=== PATIENT | male | born 1960 | race Caucasian/White ===

== ENCOUNTER 2018-06-27 19:04 | Emergency (ER) | payer OTHER ==
[2018-06-27] MEDS ORDERED: MORPHINE 4 MG/ML 1ML VIAL/SYRINGE (J2270) As Ordered ONE (19:22)
[2018-06-27] MEDS ORDERED: MORPHINE 4 MG/ML 1ML VIAL/SYRINGE (J2270) IV ONE (19:30)
[2018-06-27] MEDS ORDERED: BUPIVACAINE LIPOSOME/PF 1.3% 20ML VIAL (13.3MG/ML)(EXPAREL)(C9290 PER1MG) INFIL ONE (19:30)
[2018-06-27] MEDS ORDERED: NS 1,000 ML IV ONE (19:30)
--- NOTE | 2018-06-27 19:52 | REP ---
Clinical: Trauma. Technique: Frontal view of the chest with multiple views of the right hemithorax. Findings: Frontal view of the chest demonstrates no acute cardiopulmonary process. Multiple views of the right hemithorax demonstrates no obvious acute rib fracture or pathology. Impression: Normal right rib series Electronically Signed by Kuldeep Iraheta MD 06/27/2018 07:43 P
[2018-06-27 20:11] LABS: BASO % 0.4 % (0.0-1.0); EOS # 0.1 10^3/uL (0.0-0.50); EOS % 0.8 % (0.0-3.0); HEMATOCRIT 41.1 % (42.0-52.0); HEMOGLOBIN 13.8 g/dl (13.5-17.5); LYMPH % 9.4 % (24.0-44.0); MEAN CORPUSCULAR HEMOGLOBIN 28.9 pg (27.0-33.0); MEAN CORPUSCULAR HGB CONC 33.6 g/dl (32.0-36.5); MEAN CORPUSCULAR VOLUME 86.2 fl (80.0-96.0); MONO # 0.5 10^3/uL (0.0-0.8); MONO % 4.8 % (0.0-5.0); NEUTROPHILS # 9.3 10^3/uL (1.8-7.7); NEUTROPHILS % 84.1 % (36.0-66.0); PLATELET COUNT, AUTOMATED 210 10^3/uL (150-450); RED BLOOD COUNT 4.77 10^6/uL (4.30-6.10); WHITE BLOOD COUNT 11.1 10^3/uL (4.0-10.0)
[2018-06-27 20:25] LABS: INR 0.89; PROTHROMBIN TIME 12.1 SECONDS (12.1-14.4)
[2018-06-27 20:34] LABS: ALBUMIN 3.3 GM/DL (3.2-5.2); ALT/SGPT 26 U/L (12-78); BILIRUBIN,DIRECT 0.2 MG/DL (0.0-0.2); BILIRUBIN,TOTAL 0.6 MG/DL (0.2-1.0); BLOOD UREA NITROGEN 15 MG/DL (7-18); CALCIUM LEVEL 7.9 MG/DL (8.5-10.1); CARBON DIOXIDE LEVEL 22 MEQ/L (21-32); CHLORIDE LEVEL 111 MEQ/L (98-107); CREATININE FOR GFR 0.82 MG/DL (0.70-1.30); GLOMERULAR FILTRATION RATE > 60.0 (>56); GLUCOSE, FASTING 146 MG/DL (70-100); POTASSIUM SERUM 3.6 MEQ/L (3.5-5.1); SODIUM LEVEL 142 MEQ/L (136-145); TOTAL PROTEIN 6.2 GM/DL (6.4-8.2)
[2018-06-27] MEDS ORDERED: ISOVUE-370 76% 100ML VIAL (Q9967) As Ordered ONE (20:46)
[2018-06-27 21:19] VITALS: BP 136/86
--- NOTE | 2018-06-27 21:22 | REP ---
Clinical: Trauma with right-sided pain. Technique: Axial contrast enhanced images from the lung bases to the pubic symphysis with coronal and sagittal re-formations using 100 ml Isovue 370 intravenous contrast material. Findings: Lung bases demonstrate mild bibasilar atelectasis along with nondisplaced fractures of the right eleventh and twelfth ribs. No evidence for solid organ injury. Liver, spleen, pancreas, gallbladder, bilateral adrenal glands and kidneys are normal. The enteric system is without obstruction or acute inflammatory process. Normal terminal ileum and appendix are identified in the right lower quadrant. Sigmoid diverticulosis noted without acute diverticulitis. Pelvis demonstrates normal bladder and age appropriate prostate/seminal vesicles. No ascites. No free air. No adenopathy. Abdominal aorta and vasculature appears normal and intact. 2 cm fat containing periumbilical hernia identified. Osseous structures intact. Impression: 1. Lung bases demonstrate bibasilar atelectasis and subtle nondisplaced posterior right eleventh and twelfth rib fractures. 2. No acute abdominopelvic pathology or trauma/injury. 3. Sigmoid diverticulosis without acute diverticulitis. 4. 2 cm fat containing periumbilical hernia. Electronically Signed by Kuldepe Iraheta MD 06/27/2018 09:13 P
--- NOTE | 2018-06-27 21:23 | REP ---
Clinical: Trauma. Right-sided chest pain. Technique: Axial contrast enhanced images from the thoracic inlet to the upper abdomen with coronal and sagittal re-formations using 100 ml Isovue 370 intravenous contrast material. Findings: There is a very subtle nondisplaced fracture of the right 11th rib posteriorly and possible nondisplaced fracture of the right 12th rib as well. Mild bibasilar atelectasis. No effusion. No pneumothorax. Tracheobronchial tree is patent. No axillary, hilar, or mediastinal adenopathy. Mediastinum demonstrates normal thoracic aorta and pulmonary vasculature. Heart and pericardium are relatively normal. Mild atherosclerotic changes to the coronary arteries noted. No pericardial effusion. Impression: 1. Very subtle nondisplaced posterior right 11th rib fracture and possible right 12th rib fracture as well. 2. Mild bibasilar atelectasis. Electronically Signed by Kuldeep Iraheta MD 06/27/2018 09:14 P
[2018-06-27] MEDS ORDERED: NORCO 5/325MG TABLET (BULK FOR ED) PO ONE (22:00)
== END 2018-06-27 22:28 | disposition home or self-care (01) ==
LOC: EDBD 19:04 → M ED 19:04
DX: S22.31XA Fracture of one rib, right side, initial encounter for closed fracture (principal); W55.29XA Other contact with cow, initial encounter; Y92.79 Other farm location as the place of occurrence of the external cause
CPT/HCPCS: 71101; 71260; 74177; 80048; 80076; 85025; 85610; 85730; 96374; 99284; C9290; J2270; Q9967

== ENCOUNTER 2020-05-08 17:10 | Observation (INO) | payer OTHER ==
[~2020-05-08] VITALS: Ht 182.9 cm; Wt 100.2 kg
[2020-05-08] MEDS ORDERED: NS 1,000 ML IV ONE (18:00)
[2020-05-08 18:07] LABS: BASO % 0.2 % (0.0-1.0); EOS % 0.2 % (0.0-3.0); HEMATOCRIT 42.4 % (42.0-52.0); LYMPH # 0.7 10^3/uL (1.5-5.0); LYMPH % 16.8 % (24.0-44.0); MEAN CORPUSCULAR HEMOGLOBIN 27.9 pg (27.0-33.0); MEAN CORPUSCULAR VOLUME 84.5 fl (80.0-96.0); MONO # 0.2 10^3/uL (0.0-0.8); MONO % 5.1 % (0.0-5.0); NEUTROPHILS # 3.2 10^3/uL (1.5-8.5); NEUTROPHILS % 77.5 % (36.0-66.0); PLATELET COUNT, AUTOMATED 154 10^3/uL (150-450); RED BLOOD COUNT 5.02 10^6/uL (4.30-6.10); WHITE BLOOD COUNT 4.1 10^3/uL (4.0-10.0)
[2020-05-08] MEDS ORDERED: LOSA100T50 PO (18:13)
[2020-05-08] MEDS ORDERED: MAPA500T2 PO (18:13)
--- NOTE | 2020-05-08 18:19 | REP ---
INDICATION: DYSPNEA/COUGH. COMPARISON: PA chest and CT 06/27/2018, TECHNIQUE: AP portable seated chest FINDINGS: Upright view shows the lungs well inflated and clear without infiltrate, effusion, atelectasis or mass. No definite nodules.. Heart, mediastinal and hilar contours are normal and unchanged. The aorta is minimally tortuous but normal for age and stable. The airway is intact. The bony thorax shows no acute finding. No free air under the diaphragm. IMPRESSION: 1. No acute cardiopulmonary change. Stable examination. <Electronically signed by Paul Angel > 05/08/20 [id number]
[2020-05-08 18:20] LABS: INR 0.87
[2020-05-08 18:43] LABS: ALBUMIN 3.6 GM/DL (3.2-5.2); ALT/SGPT 52 U/L (12-78); BILIRUBIN,DIRECT 0.3 MG/DL (0.0-0.2); BILIRUBIN,TOTAL 0.9 MG/DL (0.2-1.0); BLOOD UREA NITROGEN 16 MG/DL (7-18); CALCIUM LEVEL 8.8 MG/DL (8.5-10.1); CARBON DIOXIDE LEVEL 24 MEQ/L (21-32); CHLORIDE LEVEL 104 MEQ/L (98-107); CK-MB VALUE MASS < 1.0 NG/ML (<3.6); CPK CREATINE PHOSPHOKINASE 60 U/L (39-308); CREATININE FOR GFR 1.25 MG/DL (0.70-1.30); GLOMERULAR FILTRATION RATE > 60.0 (>56); GLUCOSE, FASTING 104 MG/DL (70-100); MB/CK RELATIVE INDEX 1.67 (< OR =4); NT-PRO BNP 57 PG/ML (<125); POTASSIUM SERUM 3.8 MEQ/L (3.5-5.1); SODIUM LEVEL 137 MEQ/L (136-145); THYROID STIMULATING HORMONE 0.429 uIU/ML (0.358-3.740); THYROXINE (T4) 11.2 UG/DL (4.5-12.0); TOTAL PROTEIN 7.8 GM/DL (6.4-8.2); TROPONIN I < 0.02 NG/ML (< 0.10)
[2020-05-08 18:44] LABS: PARTIAL THROMBOPLASTIN TIME 26.8 SECONDS (24.2-38.5)
[2020-05-08 18:47] LABS: D-DIMER QUANT 2216.53 ng/ml (<500)
[2020-05-08 18:59] LABS: FERRITIN 618 NG/ML (26-388); LDH LACTATE DEHYDROGENASE 225 U/L (87-241)
[2020-05-08 20:00] VITALS: O2SAT 98
[2020-05-08 20:54] VITALS: BP 127/70
[2020-05-08] MEDS ORDERED: ACETAMINOPHEN 500 MG TAB PO PRN (21:45)
--- NOTE | 2020-05-08 21:52 | HPEPDOC ---
[facility] Medical History & Physical Date of Admission May 08, 2020 Date of Service: May 08, 2020 History and Physical CHIEF COMPLAINT: Feeling tired HISTORY OF PRESENT ILLNESS: 60-year-old male past medical history of hypertension presents to the emergency department for feeling more tired and weak over the past 2 days. Found to be COVID positive. tells me his was diagnosed with Covid one week ago, in 4 days ago he started feeling feverish at home as well as feeling more tired and weak and feeling some nausea and vomiting. Says his breathing hasn't been too bad but today he started feeling some mild shortness of breath but it is currently resolved. States he has a occasional dry cough. Denies feeling short of breath at this time. Patient had a brief period of time in the ED when he was tachypneic respiratory rate was 28 but this spontaneously resolved and he has not needed supplemental oxygen and saturating between 95 and 100% on room air. Covid labs were ordered in the ED d-dimer, CRP and ferritin were elevated. Pro-calcitonin is pending. PAST MEDICAL HISTORY: Hypertension PAST SURGICAL HISTORY: Right eye cataract surgery 2014, left eye cataract surgery 2005 SOCIAL HISTORY: Denies alcohol use Denies tobacco use Denies illicit drug use FAMILY HISTORY: Reviewed and noncontributory has Covid diagnosed 1 week ago ALLERGIES: Please see below. REVIEW OF SYSTEMS: Constitutional: No sweating or weight loss. Feeling feverish at home Eyes: No eye pain or acute blurred vision HENT: No complaints of headache or sore throat Cadiovascular: No Chest pain or palpitations Pulm: Per HPI. Gastrointestinal: Endorses some nausea and vomited but no abdominal pain Genitourinary: No dysuria or hematuria Musculoskeletal: No back pain or joint pain Skin: No rash or jaundice Neurological: Feeling more tired lately week HOME MEDICATIONS: Please see below. PHYSICAL EXAMINATION: Constitutional: Awake and alert, in no apparent distress. On room air saturating at 98% ENT: Sclera are clear. Mucosa is moist. Respiratory: Lungs CTA bilaterally. No respiratory distress. No use of accessory muscles. Cardiovascular: RRR S1 and S2 are normal, no murmur Gastrointestinal: Abdomen is soft, non distended, non tender, BS present. Musculoskeletal: No edema Neurologic: No focal neurological deficit. Mental Status: A&O x3, normal affect Skin: Warm, dry LABORATORY DATA: See below. IMAGING: Chest x-ray reviewed no acute cardiopulmonary change MICROBIOLOGY: Please see below. ASSESSMENT/PLAN 60-year-old male history of hypertension found to have Covid 19 infection with tachypnea in the ED now resolved. Saturating well on room air. Also having some nausea and vomiting. We'll admit to medical unit for observation. # COVID 19 infection: Continuous pulse ox and oxygen as needed. Not requiring supplemental oxygen as time holding off on steroids at this time. No IV fluids at this time keep on the drier tender naphthalene side. Not suspecting superimposed pneumonia antibiotics for now. Pro-calcitonin pending. Intial D dimer, ferritin, CRP elevated. Trend covid markers. Prophylactic Lovenox Covid dose. Tylenol when necessary for fever. # Nausea/vomiting: QTC okay Zofran when necessary. Regular diet as tolerated. # HTN: Resume home losartan, added amlodipine and hydrochlorothiazide. Monitor and titrate. # DVT prophylaxis: Lovenox COVID prophylactic dose A [facility] Hospitalist Vital Signs Vital Signs Date Time Temp Pulse Resp B/P (MAP) Pulse Ox O2 Delivery O2 Flow Rate FiO2 05/08/20 20:51 101.0 05/08/20 20:30 95 178/97 (124) 97 Room Air 05/08/20 19:30 20 Laboratory Data Labs 24H Laboratory Tests 2 05/08/20 17:53: Immature Granulocyte % (Auto) 0.2, Neutrophils (%) (Auto) 77.5H, Lymphocytes (%) (Auto) 16.8L, Monocytes (%) (Auto) 5.1H, Eosinophils (%) (Auto) 0.2, Basophils (%) (Auto) 0.2, Neutrophils # (Auto) 3.2, Lymphocytes # (Auto) 0.7L, Monocytes # (Auto) 0.2, Eosinophils # (Auto) 0.0, Basophils # (Auto) 0.0, Nucleated Red Blood Cells % (auto) 0.0, Prothrombin Time 12.0, Prothromb Time International Ratio 0.87, Activated Partial Thromboplast Time 26.8, D-Dimer, Quantitative 2216.53H, Anion Gap 9, Glomerular Filtration Rate > 60.0, Lactic Acid Level 1.4, Calcium Level 8.8, Ferritin 618H, Total Bilirubin 0.9, Direct Bilirubin 0.3H, Aspartate Amino Transf (AST/SGOT) 37, Alanine Aminotransferase (ALT/SGPT) 52, Alkaline Phosphatase 97, Lactate Dehydrogenase 225, Total Creatine Kinase 60, Creatine Kinase MB < 1.0, Creatine Kinase MB Relative Index 1.67, Troponin I < 0.02, C-Reactive Protein, Quantitative 3.60H, XO-Inc-J-Type Natriuretic Peptide 57, Total Protein 7.8, Albumin 3.6, Albumin/Globulin Ratio 0.9, Thyroid Stimulating Hormone (TSH) 0.429, Thyroxine (T4) 11.2, Coronavirus (COVID- 19)(PCR) POSITIVEA CBC/BMP Laboratory Tests 05/08/20 17:53 Microbiology Microbiology 05/08/20 Blood Culture, Received Pending 05/08/20 Respiratory Virus Panel (PCR) (DIONTE) - Final, Complete 05/08/20 Blood Culture, Received Pending Home Medications Scheduled Losartan Potassium (Losartan Potassium) 100 Mg Tablet, 100 MG PO DAILY Scheduled PRN Acetaminophen (Mapap) 500 Mg Tablet, 1,000 MG PO Q6H PRN for PAIN / FEVER Allergies Coded Allergies: No Known Allergies (Unverified , 06/27/18) A-FIB/CHADSVASC A-FIB History Current/History of A-Fib/PAF?: No EPHRAIM BARBER MD May 08, 2020 21:52
[2020-05-08] MEDS: ONDANSETRON 4MG/2ML VIAL IV PRN (22:05)
[2020-05-08] MEDS: ENOXAPARIN 60MG/0.6ML SYRINGE (J1650 PER 10MG) SC SCH (22:05)
[2020-05-08] MEDS: hydroCHLOROthiazide 12.5 MG CAPSULE PO SCH (22:06)
[2020-05-09] VITALS (8 sets, daily range): BP systolic 110–124; BP diastolic 66–78; O2SAT 96–99
[2020-05-09] MEDS: ONDANSETRON 4MG/2ML VIAL IV PRN ×2 (04:11→15:14)
[2020-05-09 07:21] LABS: BASO % 0.3 % (0.0-1.0); EOS % 0.3 % (0.0-3.0); HEMATOCRIT 38.2 % (42.0-52.0); HEMOGLOBIN 12.8 g/dl (13.5-17.5); LYMPH # 0.9 10^3/uL (1.5-5.0); LYMPH % 23.2 % (24.0-44.0); MEAN CORPUSCULAR HEMOGLOBIN 28.1 pg (27.0-33.0); MEAN CORPUSCULAR HGB CONC 33.5 g/dl (32.0-36.5); MONO # 0.2 10^3/uL (0.0-0.8); MONO % 5.7 % (0.0-5.0); NEUTROPHILS # 2.6 10^3/uL (1.5-8.5); NEUTROPHILS % 70.2 % (36.0-66.0); PLATELET COUNT, AUTOMATED 135 10^3/uL (150-450); RED BLOOD COUNT 4.55 10^6/uL (4.30-6.10); WHITE BLOOD COUNT 3.7 10^3/uL (4.0-10.0)
[2020-05-09 07:33] LABS: INR 0.96
[2020-05-09 07:34] LABS: PARTIAL THROMBOPLASTIN TIME 33.7 SECONDS (24.2-38.5)
[2020-05-09 08:13] LABS: ALBUMIN 3.1 GM/DL (3.2-5.2); ALT/SGPT 41 U/L (12-78); BILIRUBIN,DIRECT 0.2 MG/DL (0.0-0.2); BILIRUBIN,TOTAL 0.6 MG/DL (0.2-1.0); BLOOD UREA NITROGEN 16 MG/DL (7-18); CALCIUM LEVEL 7.8 MG/DL (8.5-10.1); CARBON DIOXIDE LEVEL 21 MEQ/L (21-32); CHLORIDE LEVEL 110 MEQ/L (98-107); CREATININE FOR GFR 1.06 MG/DL (0.70-1.30); FERRITIN 493 NG/ML (26-388); GLOMERULAR FILTRATION RATE > 60.0 (>56); GLUCOSE, FASTING 92 MG/DL (70-100); MAGNESIUM LEVEL 2.2 MG/DL (1.8-2.4); NT-PRO BNP 49 PG/ML (<125); POTASSIUM SERUM 3.6 MEQ/L (3.5-5.1); SODIUM LEVEL 141 MEQ/L (136-145); TOTAL PROTEIN 6.6 GM/DL (6.4-8.2); TRIGLYCERIDES LEVEL 91 MG/DL (<150); TROPONIN I < 0.02 NG/ML (< 0.10)
[2020-05-09] MEDS: ENOXAPARIN 60MG/0.6ML SYRINGE (J1650 PER 10MG) SC SCH (08:27)
[2020-05-09] MEDS: hydroCHLOROthiazide 12.5 MG CAPSULE PO SCH (08:28)
[2020-05-09] MEDS ORDERED: ASPIRIN 325 MG TAB PO SCH (09:00)
[2020-05-09] MEDS ORDERED: ASPIRIN 325 MG TAB NG SCH (09:00)
[2020-05-09] MEDS ORDERED: amLODIPine 5 MG TAB PO SCH (09:00)
[2020-05-09] MEDS ORDERED: LOSARTAN 50MG TABLET PO SCH (09:00)
[2020-05-09] MEDS ORDERED: ASPI-1 PO (15:54)
[2020-05-09] MEDS ORDERED: ONDA4TAB6 PO (15:54)
--- NOTE | 2020-05-09 16:56 | ECGEPIP ---
[facility] - ED Test Date: 2020-05-08 Pat Name: MYLES PARK Department: Room: - Gender: Male [employer] Tender: : 1960 Requested By: Rosemary Patterson Order Number: [id number] Reading MD: Rosemary Patterson Measurements Intervals [place] Rate: 88 P: 6 W[place]: 168 QRS: -3 QRSD: 98 T: 29 QT: 334 QTc: 406 Interpretive Statements SINUS RHYTHM NO PRIOR Electronically Signed on 05-09-2020 16:55:45 EST by Rosemary Patterson
--- NOTE | 2020-05-09 21:29 | DS.PDOC ---
Discharge Summary General Date of Admission May 08, 2020 at 17:11 Date of Discharge 05/09/20 Discharge Summary PROCEDURES PERFORMED DURING STAY: [None]. DISCHARGE DIAGNOSES: COVID-19 infection COMPLICATIONS/CHIEF COMPLAINT: Coronavirus Infection. HOSPITAL COURSE: 60-year-old male past medical history of hypertension presents to the emergency department for feeling more tired and weak over the past 4 days with fever, flu like symptoms, nausea and Found to be COVID positive. His was diagnosed with Covid one week ago, adn before that his father who lives with him was also COVID positive. 4 days ago he started feeling feverish at home as well as feeling more tired and weak and feeling some nausea and vomiting and poor appetite. Says his breathing had'nt been bad but on the day of admission he started feeling some mild shortness of breath so came to the ED. States he has a occasional dry cough. Patient had a brief period of time in the ED when he was tachypneic respiratory rate was 28 but this spontaneously resolved and he has not needed supplemental oxygen and saturating between 95 and 100% on room air. COVID labs showed elevated inflammatory markers, elevated d dimer, elevated fibrinogen , normal LFTs. Normal trigleceride levels. COVID 19 infection ASA daily, tylenol prn, ZOfran prn Patient reports he has a BP machine and oxygen monitor at home. Instructed to Monitor own pulse, bp and oxygen levels at home three times a day. Instructed to come back to ED or Call PMD if Oxygen levels drop below 90% to 92% HTN Resume home losartan DISCHARGE MEDICATIONS: Please see below. ALLERGIES: Please see below. PHYSICAL EXAMINATION ON DISCHARGE: VITAL SIGNS: Please see below. Constitutional: Awake and alert, in no apparent distress. On room air saturating at 98% ENT: Sclera are clear. Mucosa is moist. Respiratory: Lungs bilaterally clear with vesicular breath sounds. No respir atory distress. No use of accessory muscles. Cardiovascular: RRR S1 and S2 are normal, no murmur/ rub or gallop Gastrointestinal: Abdomen is soft, non distended, non tender, BS present. Musculoskeletal: No edema Neurologic: No focal neurological deficit. Mental Status: A&O x3, normal affect Skin: Warm, dry LABORATORY DATA: Please see below. ACTIVITY: [As tolerated]. DIET: As tolerated DISPOSITION: 01 Home, Self-Care. DISCHARGE INSTRUCTIONS: Follow up with PMD after 2 weeks Continue quarantine for 14 days from the day of beginning of symptoms. COme back to ED if there any difficulty in breathing or oxygen levels lower than 92% on the machine. DISCHARGE CONDITION: [Stable]. TIME SPENT ON DISCHARGE: 35 minutes. Vital Signs/I&Os Vital Signs Date Time Temp Pulse Resp B/P (MAP) Pulse Ox O2 Delivery O2 Flow Rate FiO2 05/09/20 17:00 76 96 Room Air 05/09/20 15:17 98.0 20 111/68 (82) 05/09/20 04:00 2.0 I&O- Last 24 Hours up to 6 AM 05/09/20 07:00 Intake Total 1360 ml Output Total 350 ml Balance 1010 ml Laboratory Data Labs 24H Laboratory Tests 2 05/09/20 00:27: 05/09/20 07:05: Immature Granulocyte % (Auto) 0.3, Neutrophils (%) (Auto) 70.2H, Lymphocytes (%) (Auto) 23.2L, Monocytes (%) (Auto) 5.7H, Eosinophils (%) (Auto) 0.3, Basophils (%) (Auto) 0.3, Neutrophils # (Auto) 2.6, Lymphocytes # (Auto) 0.9L, Monocytes # (Auto) 0.2, Eosinophils # (Auto) 0.0, Basophils # (Auto) 0.0, Nucleated Red Blood Cells % (auto) 0.0, Prothrombin Time 13.0, Prothromb Time International Ratio 0.96, Activated Partial Thromboplast Time 33.7, Fibrinogen 453H, Anion Gap 10, Glomerular Filtration Rate > 60.0, Calcium Level 7.8L, Magnesium Level 2.2, Ferritin 493H, Total Bilirubin 0.6, Direct Bilirubin 0.2, Aspartate Amino Transf (AST/SGOT) 27, Alanine Aminotransferase (ALT/SGPT) 41, Alkaline Phosphatase 77, Troponin I < 0.02, JO-Uuj-A-Type Natriuretic Peptide 49, Total Protein 6.6, Albumin 3.1L, Albumin/Globulin Ratio 0.9, Triglycerides Level 91 CBC/BMP Laboratory Tests 05/09/20 07:05 Microbiology Microbiology 05/08/20 Blood Culture - Preliminary, Resulted No growth after 24 hours . All specim... 05/08/20 Respiratory Virus Panel (PCR) (DIONTE) - Final, Complete 05/08/20 Blood Culture - Preliminary, Resulted No growth after 24 hours . All specim... Discharge Medications Scheduled Aspirin (Aspirin) 325 Mg Tablet, 325 MG PO DAILY Losartan Potassium (Losartan Potassium) 100 Mg Tablet, 100 MG PO DAILY, (Reported) Scheduled PRN Acetaminophen (Mapap) 500 Mg Tablet, 1,000 MG PO Q6H PRN for PAIN / FEVER, (Reported) Ondansetron (Ondansetron Odt) 4 Mg Tab.rapdis, 4 MG PO Q6-8HP PRN for nausea/vomiting Allergies Coded Allergies: No Known Allergies (Unverified , 06/27/18) NUNO FARIAS MD May 09, 2020 21:29
[2020-05-12 17:18] LABS: BODY FLUID CULTURE Not indicated. (.); LEGIONELLA ANTIGEN URINE Negative (Negative); ORGANISM ID Not indicated. (.); SPECIMEN SOURCE Urine (.); URINE STREP PNEUMONIAE ANTIGEN Negative (Negative)
== END 2020-05-09 18:36 | disposition home or self-care (01) ==
LOC: M ED 17:10 → EEVIPCON 17:11 → M ED INP 17:11 → ENRESERV 20:20 → M ICU 20:44
PROVIDERS: ADMIT Family Medicine; ATTEND Family Medicine
DX: U07.1 COVID-19 (principal); R06.02 Shortness of breath; R50.9 Fever, unspecified; I10 Essential (primary) hypertension; Z79.82 Long term (current) use of aspirin; Z79.899 Other long term (current) drug therapy
CPT/HCPCS: 36415; 71045; 80048; 80076; 82550; 82553; 82728; 83605; 83615; 83735; 83880; 84145; 84436; 84443; 84478; 84484; 85025; 85379; 85384; 85610; 85730; 86140; 87040; 87449; 87486; 87581; 87633; 87798; 87899; 93005; 93041; 94760; 96361; 96374; 96376; 99285; J1650; J2405; U0002

== ENCOUNTER 2020-09-02 06:12 | Observation (INO) | payer OTHER ==
[~2020-09-02] VITALS: Ht 190.5 cm; Wt 105.2 kg
[~2020-09-02 06:12] MED LIST: ASPI-1 PO; LOSA100T50 PO; MAPA500T2 PO; ONDA4TAB6 PO
[2020-09-02 06:48] LABS: BASO % 0.3 % (0.0-1.0); EOS # 0.1 10^3/uL (0.0-0.5); EOS % 0.6 % (0.0-3.0); HEMATOCRIT 43.4 % (42.0-52.0); HEMOGLOBIN 14.5 g/dl (13.5-17.5); LYMPH # 0.9 10^3/uL (1.5-5.0); MEAN CORPUSCULAR HEMOGLOBIN 27.9 pg (27.0-33.0); MEAN CORPUSCULAR HGB CONC 33.4 g/dl (32.0-36.5); MEAN CORPUSCULAR VOLUME 83.5 fl (80.0-96.0); MONO # 0.6 10^3/uL (0.0-0.8); MONO % 4.9 % (2.0-8.0); NEUTROPHILS # 9.6 10^3/uL (1.5-8.5); NEUTROPHILS % 85.8 % (36.0-66.0); PLATELET COUNT, AUTOMATED 256 10^3/uL (150-450); WHITE BLOOD COUNT 11.2 10^3/uL (4.0-10.0)
[2020-09-02] MEDS ORDERED: GI COCKTAIL 50ML BTL(HYOSCYAMINE/MAALOX/LIDOCAINE VISCOUS)(1:3:1) PO ONE (06:50)
[2020-09-02] MEDS ORDERED: ISOVUE-370 76% 100ML VIAL As Ordered ONE (06:54)
[2020-09-02 06:59] LABS: INR 0.95; PROTHROMBIN TIME 12.9 SECONDS (12.5-14.3)
[2020-09-02 07:19] LABS: ALBUMIN 4.2 GM/DL (3.2-5.2); ALT/SGPT 38 U/L (12-78); BILIRUBIN,DIRECT 0.2 MG/DL (0.0-0.2); BILIRUBIN,TOTAL 1.2 MG/DL (0.2-1.0); BLOOD UREA NITROGEN 20 MG/DL (7-18); CALCIUM LEVEL 10.2 MG/DL (8.5-10.1); CARBON DIOXIDE LEVEL 27 MEQ/L (21-32); CHLORIDE LEVEL 102 MEQ/L (98-107); CK-MB VALUE MASS 2.2 NG/ML (<3.6); CPK CREATINE PHOSPHOKINASE 105 U/L (39-308); CREATININE FOR GFR 1.15 MG/DL (0.70-1.30); GLOMERULAR FILTRATION RATE > 60.0 (>56); GLUCOSE, FASTING 132 MG/DL (70-100); LIPASE 155 U/L (73-393); POTASSIUM SERUM 4.1 MEQ/L (3.5-5.1); SODIUM LEVEL 138 MEQ/L (136-145); TOTAL PROTEIN 7.9 GM/DL (6.4-8.2); TROPONIN I < 0.02 NG/ML (< 0.10)
--- NOTE | 2020-09-02 07:20 | REPVR ---
PROCEDURE INFORMATION: Exam: XR Chest Exam date and time: 09/02/2020 6:47 AM Age: 60 years old Clinical indication: Chest pain; Type not specified TECHNIQUE: Imaging protocol: XR of the chest Views: 1 view. COMPARISON: ME PORTABLE CHEST X-RAY 05/08/2020 5:46 PM FINDINGS: Lungs: No acute airspace disease. Pleural spaces: No pleural effusion. Heart/Mediastinum: No cardiomegaly. Bones/joints: Mild degenerative change. When correlating with the previous study, no significant interval changes are present. IMPRESSION: No acute airspace or pleural disease. Electronically signed by: Toni Wallis On 09/02/2020 07:20:33 AM
--- NOTE | 2020-09-02 07:24 | REPVR ---
PROCEDURE INFORMATION: Exam: CT Angiography Chest With Contrast Exam date and time: 09/02/2020 6:48 AM Age: 60 years old Clinical indication: Chest pain; Type not specified TECHNIQUE: Imaging protocol: Computed tomographic angiography of the chest with contrast. 3D rendering (Not supervised by radiologist): MIP and/or 3D reconstructed images were created by the technologist. Radiation optimization: All CT scans at this facility use at least one of these dose optimization techniques: automated exposure control; mA and/or kV adjustment per patient size (includes targeted exams where dose is matched to clinical indication); or iterative reconstruction. Contrast material: ISO; Contrast volume: 100 ml; Contrast route: INTRAVENOUS (IV); COMPARISON: CT Chest with contrast 06/27/2018 8:42 PM FINDINGS: Pulmonary arteries: No pulmonary embolus in the opacified pulmonary arteries. Aorta: Ectasia of the thoracic aorta. Lungs: Interstitial prominence and mild lingular airspace disease. Pleural spaces: Trace right pleural effusion. Heart: Mild left ventricular hypertrophy and subtle coronary artery calcification. Lymph nodes: Subcentimeter lymph nodes. Bones/joints: Degenerative change. Old rib fractures. IMPRESSION: 1. No pulmonary embolus in the opacified pulmonary arteries. 2. Additional findings as described above. Electronically signed by: Toni Wallis On 09/02/2020 07:24:52 AM
--- NOTE | 2020-09-02 07:28 | REPVR ---
PROCEDURE INFORMATION: Exam: CT Abdomen And Pelvis With Contrast Exam date and time: 09/02/2020 6:48 AM Age: 60 years old Clinical indication: Abdominal pain; Epigastric; Additional info: Epigastric pain, R/O pancreatitis TECHNIQUE: Imaging protocol: Computed tomography of the abdomen and pelvis with contrast. Radiation optimization: All CT scans at this facility use at least one of these dose optimization techniques: automated exposure control; mA and/or kV adjustment per patient size (includes targeted exams where dose is matched to clinical indication); or iterative reconstruction. Contrast material: ISO; Contrast volume: 100 ml; Contrast route: INTRAVENOUS (IV); COMPARISON: CT ABD/PEL W/IV CONTRAST ONLY 06/27/2018 8:42 PM FINDINGS: Mediastinal space: Small hiatal hernia. Liver: Fatty infiltration of the liver. Gallbladder and bile ducts: No cholelithiasis or biliary ductal dilatation. Pancreas: No pancreatic mass or ductal dilatation. Spleen: Inhomogeneous attenuation in the normal size spleen. Adrenal glands: Unremarkable adrenals. Kidneys and ureters: Normal renal morphology. No hydronephrosis. Stomach and bowel: Gastric wall thickening. Marked jejunal dilatation, in a pattern of partial small bowel obstruction at the level of the distal jejunum or proximal ileum. Scattered diverticula, without pericolonic inflammation. Appendix: No acute appendicitis. Intraperitoneal space: Small quantity of free fluid. Vasculature: Normal caliber of the abdominal aorta. Lymph nodes: Subcentimeter lymph nodes. Urinary bladder: Normal bladder morphology. Reproductive: Unremarkable as visualized. Bones/joints: Degenerative change and disc bulging. Soft tissues: Fat containing umbilical hernia. IMPRESSION: 1. Gastric wall thickening. 2. Marked jejunal dilatation, in a pattern of partial small bowel obstruction at the level of the distal jejunum or proximal ileum. 3. Small quantity of free fluid. 4. Additional findings as described above. Electronically signed by: Toni Wallis On 09/02/2020 07:28:50 AM
--- NOTE | 2020-09-02 10:04 | REP ---
INDICATION: abd pain COMPARISON: None. TECHNIQUE: Real time turner scale ultrasound examination using curved array transducer. FINDINGS: Liver is hyperechoic and upper limits of normal in size measuring 17 cm in craniocaudal length. No focal hepatic lesion identified. Pancreas is incompletely evaluated due to interposed bowel gas but visualized portions appear normal. The gallbladder is normal and without gallstones, wall thickening, or pericholecystic fluid. No biliary ductal dilatation is appreciated and the common bile duct measures 4.0 mm diameter. Right kidney is normal in reniform shape without hydronephrosis and measures 10.6 x 5.7 x 5.8 cm. No ascites in the visualized right upper quadrant. IMPRESSION: Mild fatty infiltration to the liver. Otherwise unremarkable right upper quadrant ultrasound. <Electronically signed by Kuldeep Iraheta > 09/02/20 [id number]
[2020-09-02 11:13] LABS: RSV AMPLIFICATION NEGATIVE (NEGATIVE)
[2020-09-02] MEDS ORDERED: ACETAMINOPHEN TAB 650MG DOSE (2X325MG) PO PRN (13:05)
[2020-09-02] MEDS ORDERED: MAALOX 30 ML SUSP *UDC PO PRN (13:05)
[2020-09-02] MEDS ORDERED: MOM 30ML SUSPENSION UDC PO PRN (13:05)
--- NOTE | 2020-09-02 14:25 | ECGEPIP ---
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
[2020-09-02 14:30] VITALS: BP 140/82
[2020-09-02] MEDS: CIPROFLOXACIN 500MG TABLET PO SCH (14:34)
[2020-09-02] MEDS: metroNIDAZOLE (FLAGYL) 500MG TABLET PO SCH ×2 (14:34→22:04)
--- NOTE | 2020-09-02 18:02 | REP ---
INDICATION: eval for SBO. COMPARISON: CT 09/02/2020. TECHNIQUE: Supine and erect views of the abdomen are performed. PA view of the chest performed. FINDINGS: There is no evidence of free intraperitoneal air. There are again moderately dilated small bowel loops in the left abdomen as seen on today's CT scan, compatible with some degree of small bowel obstruction or ileus. Bladder is mildly distended with excreted contrast material from the CT scan. There are mild degenerative changes of the spine. No infiltrate is seen in either lung. The heart mediastinum are within normal limits. IMPRESSION: Persistent moderate small bowel dilatation in the left abdomen compatible with some degree of small bowel obstruction or ileus. <Electronically signed by Eric Delgdao > 09/02/20 [id number]
--- NOTE | 2020-09-02 18:13 | HPEPDOC ---
[facility] Medical History & Physical Date of Admission Sep 02, 2020 Date of Service: Sep 02, 2020 Attending Physician: TRIXIE DOW MD History and Physical CHIEF COMPLAINT: Abdominal pain 1 day HISTORY OF PRESENT ILLNESS: Patient is a 60-year-old male with a past medical history of hypertension and right eye blindness who presents with abdominal pain for the past day. He states that he vomited once last night. However, does not feel nauseous or had any vomiting episodes since then. He denies eating anything since last night. He states that the pain is a 9 out of 10 when he has about of abdominal pain. Currently states his pain is 5 out of 10 while he is lying supine. He denies any alleviating factors. He states that he has tried to lie recumbent. However, this has not helped. The abdominal pain episodes last approximately 1 minute and subside spontaneously. He denies any nausea, vomiting, diarrhea, constipation, melena or hematochezia at this time. He states that he ate [place] rice last night, after which he developed this epigastric pain. He states that the pain has progressed to be more diffuse. He denies any sick contacts and denies traveling. He denies history of Crohn's disease, cholecystitis, any immunocompromised disease, any previous colitis, and drug use. He denies any fevers, chills, night sweats or unintentional weight loss. PAST MEDICAL HISTORY: 1. Hypertension PAST SURGICAL HISTORY: 1. left elbow fracture. 2. right eye surgery. SOCIAL HISTORY: Marital status: Lives at home with . 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 ALLERGIES: Please see below. REVIEW OF SYSTEMS: CONSTITUTIONAL: Denies fevers, chills, night sweats or unintentional weight loss. HEENT: Denies headaches, blurry vision, dizziness. CARDIOVASCULAR: Denies heart palpitations or chest pain. RESPIRATORY: Denies shortness of breath. GASTROINTESTINAL: Denies nausea, vomiting, diarrhea, constipation, melena or hematochezia. GENITOURINARY: denies dysuria. MUSCULOSKELETAL: Denies any muscular weakness. NEUROLOGICAL: Denies numbness or tingling in bilateral lower extremities. PSYCHIATRIC: Denies depression. HEMATOLOGIC/LYMPHATIC: Denies easy bruising or excessive bleeding. HOME MEDICATIONS: Please see below. PHYSICAL EXAMINATION: GENERAL APPEARANCE: cooperative on exam, lying supine in no acute distress. HEENT: Right conjunctival erythema, patient has right eye blindness and therefore was not able to track finger like he did with the left eye, no nasal congestion, oral mucosa moist CARDIOVASCULAR: Regular rate and rhythm, no murmurs, rubs or gallops. LUNGS: Clear to auscultation bilaterally. No wheezes, rales or rhonchi. ABDOMEN: Soft, nontender to palpation except for middle upper quadrant. MUSCULOSKELETAL: Upper and lower extremity strength 5 out of 5 with good range of motion, patient able to sit up on his own. NEUROLOGICAL: Cranial nerves III-12 grossly intact, [id number] test: negative LABORATORY DATA: See below. IMAGING: CXR 09/02/2020: No acute airspace or pleural disease. CT chest with contrast 09/02/2020: Pulmonary arteries: No pulmonary embolus in the opacified pulmonary arteries. Aorta: Ectasia of the thoracic aorta. Lungs: Interstitial prominence and mild lingular airspace disease. Pleural spaces: Trace right pleural effusion. Heart: Mild left ventricular hypertrophy and subtle coronary artery calcification. Lymph nodes: Subcentimeter lymph nodes. Bones/joints: Degenerative change. Old rib fractures. Impression: 1. No pulmonary embolus in the opacified pulmonary arteries. 2. Additional findings as described above CT abdomen and pelvis with contrast 09/02/2020: 1. Gastric wall thickening. 2. Marked jejunal dilatation, in a pattern of partial small bowel obstruction at the level of the distal jejunum or proximal ileum. 3. Small quantity of free fluid. 4. Additional findings as described above. Gallbladder ultrasound 09/02/2020: Liver is hyperechoic and upper limits of normal in size measuring 17 cm in craniocaudal length. No focal hepatic lesion identified. Pancreas is incompletely evaluated due to interposed bowel gas but visualized portions appear normal. The gallbladder is normal and without gallstones, wall thickening, or pericholecystic fluid. No biliary ductal dilatation is appreciated and the common bile duct paulino sures 4.0 mm diameter. Right kidney is normal in reniform shape without hydronephrosis and measures 10.6 x 5.7 x 5.8 cm. No ascites in the visualized right upper quadrant. IMPRESSION: Mild fatty infiltration to the liver. Otherwise unremarkable right upper quadrant ultrasound. MICROBIOLOGY: Please see below. ASSESSMENT/PLAN: #Abdominal pain likely secondary to gastritis (infection) CT abdomen and pelvis with contrast showed gastric wall thickening and marked jejunal dilatation Gallbladder ultrasound shows no gallbladder pathology. Lipase levels are within normal limits. Therefore not thinking about pancreatitis at this time. AST and ALT levels are within normal limits. We do not believe this is due to a hepatic etiology at this time Patient placed on clear liquid diet. Ordered oral Flagyl and ciprofloxacin for next 7 days. Consult surgery for possible SBO, Dr. Ayala does not believe intervention is needed at this time #Hypertension Continue home medication: Losartan 100 mg daily, with holding parameters SBP less than 110 and HR less than 60 Disposition: Observe for 2 nights and then anticipate discharging home. Vital Signs Vital Signs Date Time Temp Pulse Resp B/P (MAP) Pulse Ox O2 Delivery O2 Flow Rate FiO2 09/02/20 07:13 74 96 09/02/20 06:43 09/02/20 06:13 98.7 22 Room Air Laboratory Data Labs 24H Laboratory Tests 2 09/02/20 06:29: Immature Granulocyte % (Auto) 0.4, Neutrophils (%) (Auto) 85.8H, Lymphocytes (%) (Auto) 8.0L, Monocytes (%) (Auto) 4.9, Eosinophils (%) (Auto) 0.6, Basophils (%) (Auto) 0.3, Neutrophils # (Auto) 9.6H, Lymphocytes # (Auto) 0.9L, Monocytes # (Auto) 0.6, Eosinophils # (Auto) 0.1, Basophils # (Auto) 0.0, Nucleated Red Blood Cells % (auto) 0.0, Prothrombin Time 12.9, Prothromb Time International Ratio 0.95, Anion Gap 9, Glomerular Filtration Rate > 60.0, Lactic Acid Level 1.5, Calcium Level 10.2H, Total Bilirubin 1.2H, Direct Bilirubin 0.2, Aspartate Amino Transf (AST/SGOT) 21, Alanine Aminotransferase (ALT/SGPT) 38, Alkaline Phosphatase 103, Total Creatine Kinase 105, Creatine Kinase MB 2.2, Creatine Kinase MB Relative Index 2.10, Troponin I < 0.02, Total Protein 7.9, Albumin 4 .2, Albumin/Globulin Ratio 1.1, Lipase 155 09/02/20 06:38: POC Troponin I (Misc) 0.00 09/02/20 06:40: POC Glucose (Misc Panel) 137H, POC Sodium (Misc Panel) 138, POC Potassium (Misc Panel) 4.2, POC Chloride (Misc Panel) 102, POC Total CO2 (Misc Panel) 30.0H, POC Blood Urea Nitrogen (Misc Panel 21, POC Ionized Calcium (Misc Panel) 4.4L, POC Creatinine (Misc Panel) 1.0, POC Hematocrit (Misc Panel) 44.0 09/02/20 08:40: POC Troponin I (Misc) 0.01 09/02/20 10:19: Coronavirus (COVID-19)(PCR) NEGATIVE, Influenza Type A (RT-PCR) NEGATIVE, Influenza Type B (RT-PCR) NEGATIVE, Respiratory Syncytial Virus (PCR) NEGATIVE CBC/BMP Laboratory Tests 09/02/20 06:29 Home Medications Scheduled Losartan Potassium (Losartan Potassium) 100 Mg Tablet, 100 MG PO DAILY Allergies Coded Allergies: No Known Allergies (Unverified , 06/27/18) GME ATTESTATION GME ATTESTATION My faculty preceptor for this patient encounter was physically present during the encounter and was fully available. All aspects of the patient interview, examination, medical decision making process, and medical care plan development were reviewed and approved by the faculty preceptor. The faculty preceptor is aware and concurs with the plan as stated in the body of this note and will attest to such by his/her cosignature. Tushar Linn DO Sep 02, 2020 12:41
[2020-09-02] MEDS ORDERED: ONDANSETRON 4MG/2ML VIAL IV PRN (18:55)
[2020-09-02] MEDS ORDERED: DOCUSATE SODIUM 100MG CAPSULE PO SCH (21:00)
[2020-09-02 21:36] LABS: BASO % 0.4 % (0.0-1.0); EOS # 0.2 10^3/uL (0.0-0.5); EOS % 1.8 % (0.0-3.0); HEMATOCRIT 41.4 % (42.0-52.0); HEMOGLOBIN 13.5 g/dl (13.5-17.5); LYMPH # 1.7 10^3/uL (1.5-5.0); MEAN CORPUSCULAR HEMOGLOBIN 28.1 pg (27.0-33.0); MEAN CORPUSCULAR HGB CONC 32.6 g/dl (32.0-36.5); MEAN CORPUSCULAR VOLUME 86.1 fl (80.0-96.0); MONO # 0.6 10^3/uL (0.0-0.8); MONO % 6.6 % (2.0-8.0); NEUTROPHILS # 6.9 10^3/uL (1.5-8.5); NEUTROPHILS % 72.9 % (36.0-66.0); PLATELET COUNT, AUTOMATED 233 10^3/uL (150-450); RED BLOOD COUNT 4.81 10^6/uL (4.30-6.10); WHITE BLOOD COUNT 9.5 10^3/uL (4.0-10.0)
[2020-09-02 22:00] VITALS: BP 136/81
[2020-09-02 22:02] LABS: BLOOD UREA NITROGEN 21 MG/DL (7-18); CARBON DIOXIDE LEVEL 28 MEQ/L (21-32); CHLORIDE LEVEL 107 MEQ/L (98-107); CREATININE FOR GFR 1.05 MG/DL (0.70-1.30); GLOMERULAR FILTRATION RATE > 60.0 (>56); GLUCOSE, FASTING 117 MG/DL (70-100); POTASSIUM SERUM 4.3 MEQ/L (3.5-5.1); SODIUM LEVEL 139 MEQ/L (136-145)
[2020-09-02 22:58] VITALS: BP 131/82
[2020-09-02] MEDS: NS 1,000 ML IV SCH (23:03)
[2020-09-03] MEDS: metroNIDAZOLE (FLAGYL) 500MG TABLET PO SCH ×2 (05:14→14:19)
[2020-09-03] MEDS: CIPROFLOXACIN 500MG TABLET PO SCH (05:14)
[2020-09-03 06:00] VITALS: BP 135/78
[2020-09-03 06:20] LABS: BASO % 0.5 % (0.0-1.0); EOS # 0.2 10^3/uL (0.0-0.5); EOS % 1.9 % (0.0-3.0); HEMATOCRIT 42.7 % (42.0-52.0); LYMPH # 1.5 10^3/uL (1.5-5.0); LYMPH % 18.6 % (24.0-44.0); MEAN CORPUSCULAR HEMOGLOBIN 28.6 pg (27.0-33.0); MEAN CORPUSCULAR HGB CONC 32.8 g/dl (32.0-36.5); MEAN CORPUSCULAR VOLUME 87.1 fl (80.0-96.0); MONO # 0.5 10^3/uL (0.0-0.8); MONO % 6.7 % (2.0-8.0); NEUTROPHILS # 5.7 10^3/uL (1.5-8.5); PLATELET COUNT, AUTOMATED 248 10^3/uL (150-450); WHITE BLOOD COUNT 7.9 10^3/uL (4.0-10.0)
[2020-09-03 06:42] LABS: BLOOD UREA NITROGEN 23 MG/DL (7-18); CARBON DIOXIDE LEVEL 24 MEQ/L (21-32); CHLORIDE LEVEL 108 MEQ/L (98-107); CREATININE FOR GFR 1.13 MG/DL (0.70-1.30); GLOMERULAR FILTRATION RATE > 60.0 (>56); GLUCOSE, FASTING 117 MG/DL (70-100); POTASSIUM SERUM 4.1 MEQ/L (3.5-5.1); SODIUM LEVEL 140 MEQ/L (136-145)
[2020-09-03] MEDS: NS 1,000 ML IV SCH ×2 (07:09→14:19)
--- NOTE | 2020-09-03 08:37 | REP ---
INDICATION: follow SBO COMPARISON: None. TECHNIQUE: Supine view of the abdomen and pelvis. FINDINGS: Bowel gas pattern is nonspecific and without obstruction or perforation. No organomegaly. No abnormal calcifications. Skeletal structures intact. IMPRESSION: Normal abdominal radiograph. No evidence for bowel obstruction on current examination. <Electronically signed by Kuldeep Iraheta > 09/03/20 [id number]
[2020-09-03 09:00] VITALS: BP 107/69
[2020-09-03] MEDS ORDERED: LOSARTAN 50MG TABLET PO SCH (09:00)
--- NOTE | 2020-09-03 09:07 | CR ---
CONSULTATION DATE: 09/02/2020 REASON FOR CONSULTATION: Abdominal pain. HISTORY OF PRESENT ILLNESS: The patient is a 60-year-old generally healthy man who presented to the Emergency Department on the morning of the 02 of September just after 6:00 a.m. complaining of abdominal pain with nausea. He reported having a meal of [place] rice the previous evening. At approximately 8:00 p.m. he noted the onset of some somewhat ill defined mid to left upper quadrant abdominal pain. He noted frequent episodes of cramping. He developed some nausea. He was unable to sleep and had persistent pain overnight. Sometime in the middle of the night he reports having thrown up at least one large volume of material and then several smaller amounts. In the morning when the pain persisted, he elected to come to the Emergency Department for evaluation. The patient reports no history of prior abdominal surgery other than bilateral inguinal hernias as a young child. He reports no prior history of similar pain. His laboratory studies showed a slight elevation of his white blood cell count. His liver function tests were normal. He was evaluated with a CT angiogram of the chest, a chest x-ray and an abdominal and pelvis CT scan. The CT scan of the abdomen and pelvis was interpreted as showing some mildly to moderately dilated proximal to mid small bowel with decompressed distal small bowel consistent with a small-bowel obstruction versus ileus. I was asked to evaluate the patient. ALLERGIES: The patient has no known drug allergies. MEDICATIONS: The patient's only medication is Losartan 100 mg p.o. daily. SURGICAL HISTORY: The patient has apparently had a previous left elbow fracture. He has had right eye surgery and has had bilateral inguinal hernias as a young child. PAST MEDICAL HISTORY: The patient's past medical history is significant only for some hypertension and a positive Covid-19 test in May. 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 He denies any tobacco use and has alcohol occasionally. FAMILY HISTORY: The patient's family history is negative for any history of Crohn's disease, ulcerative colitis or colorectal cancer. REVIEW OF SYSTEMS: No history of chest pain or palpitations. He denies any cough, wheezing or sputum production. He has had no history of melena, hematochezia, diarrhea or significant constipation. He denies dysuria or hematuria. He has no ongoing bone or joint issues. He has no history of seizures, stroke or chronic severe headaches. PHYSICAL EXAMINATION: GENERAL APPEARANCE: A pleasant middle aged man lying quietly on the hospital stretcher. He appears mildly uncomfortable at the time of the exam. SKIN: Warm and dry. HEENT: Sclerae are anicteric. Mucous membranes are moist. NECK: Supple without mass. HEART: Regular rate and rhythm of about 80. LUNGS: Clear. ABDOMEN: Does not appear distended. He has small oblique scars in both groin areas. There is no evident inguinal hernia. He has a very small protrusion at the top of the umbilical dimple which appears to represent only some fibrofatty tissue. He has active bowel sounds across the upper abdomen. The abdomen is soft. He has some mild direct tenderness in the epigastrium and left upper quadrant. EXTREMITIES: Palpable radial and dorsalis pedis pulses bilaterally. There is no lower extremity edema. LABORATORY STUDIES: A CBC showing a white count of 11, with a differential showing 86% neutrophils, 8% lymphocytes and 5% monocytes. Hemoglobin is 14 with a hematocrit of 43 and the platelet count is 256,000. PT and INR are normal. Chemistry profile shows normal electrolytes with a BUN of 20, creatinine 1.1 and a glucose of 132. Calcium is slightly elevated at 10.2 with a total bilirubin of 1.2 and a direct of 0.2. Other liver function tests are normal. Troponin is less than 0.02. Lipase is normal at 155. Coronavirus serology was negative although I would note that he did test positive for COVID-19 back in early May of 2020. IMAGING: A chest x-ray that was interpreted as showing no acute air space or pleural disease. A CT angiogram was obtained in the Emergency Department which showed no evidence of pulmonary embolus with some old rib fractures, trace right pleural effusion and some mild left ventricular hypertrophy. A CT scan of the abdomen and pelvis was then obtained which was interpreted as showing some gastric wall thickening with some marked jejunal dilatation in a pattern of partial small-bowel obstruction at the level of the distal jejunum or proximal ileum. There is a small quantity of free fluid. I reviewed the images of the CT scan of the abdomen and pelvis personally. I do not think that the gastric wall thickening was significant and represented just some folding of the stomach in that area. Certainly there was some mild to moderate dilation of the proximal jejunum, and I would agree there was a small amount of free fluid in the pelvis. There was no free air. I could not identify a distinct transition point in the small bowel although the distal small bowel is clearly quite decompressed. IMPRESSION: The patient is a 60-year-old man with a roughly 12-hour history of abdominal pain with some nausea and vomiting overnight. He has active bowel sounds currently with some mild tenderness in the left upper quadrant. His CT showed some mildly to moderately dilated proximal small bowel loops with some decompressed distal small bowel. The patient does not have a history of abdominal surgery that I would think would make him a risk for obstruction from adhesions. The initial onset of his pain I thought could be suggestive of biliary pathology. RECOMMENDATIONS: 1. I recommended to Dr. Burns that she obtain an ultrasound of the gallbladder to rule out cholelithiasis or acute cholecystitis. He does not have any history of mid or upper abdominal surgery to suggest a cause for adhesions. He also denied any history of prior abdominal trauma. Certainly there are potential causes for a small-bowel obstruction that do not rely on prior surgery, but they are less frequent. 2. If the gallbladder ultrasound is negative for stones and the patient continues to be symptomatic, I would recommend admission for observation and possible further testing regarding possible ileus versus obstruction. DARCI
[2020-09-03] MEDS ORDERED: FLAG500T PO (10:25)
[2020-09-03] MEDS ORDERED: ONDA4INJ4 IV (10:25)
[2020-09-03] MEDS ORDERED: CIPR-249 PO (10:25)
[2020-09-03] MEDS ORDERED: E-Z-PAQUE 96% w/w SUSP 176GM BTL As Ordered ONE (11:04)
[2020-09-03 14:00] VITALS: BP 121/72
--- NOTE | 2020-09-03 15:43 | DS.PDOC ---
Discharge Summary General Date of Admission Sep 02, 2020 at 06:13 Date of Discharge Sep 03, 2020 Attending Physician: TRIXIE DOW MD Discharge Summary PROCEDURES PERFORMED DURING STAY: None. ADMITTING DIAGNOSES: 1. Abdominal pain likely secondary to gastritis (infection). 2. Hypertension. DISCHARGE DIAGNOSES: 1. Abdominal pain. COMPLICATIONS/CHIEF COMPLAINT: Abdominal Pain, Coronavirus Infection. HISTORY OF PRESENT ILLNESS: Patient is a 60-year-old male with a past medical history of hypertension and right eye blindness who presents with abdominal pain for the past day. He states that he vomited once last night. However, does not feel nauseous or had any v omiting episodes since then. He denies eating anything since last night. He states that the pain is a 9 out of 10 when he has a bout of abdominal pain. Currently states his pain is 5 out of 10 while he is lying supine. He denies any alleviating factors. He states that he has tried to lie recumbent, however this has not helped. The abdominal pain episodes last approximately 1 minute and subside spontaneously. He denies any nausea, vomiting, diarrhea, constipation, melena or hematochezia at this time. He states that he ate [place] rice last night, after which he developed this epigastric pain. He states that the pain has progressed to be more diffuse. He denies any sick contacts and denies tra veling. He denies history of Crohn's disease, cholecystitis, any immunocompromised disease, any previous colitis, and drug use. He denies any fevers, chills, night sweats or unintentional weight loss. HOSPITAL COURSE: Dr. Ayala, surgeon, was consulted in the ED and recommended US of the gallbladder to r/o cholelithiasis or cholecystitis. Admission was recommended if gallbladder US was negative for further testing for possible ileus vs obstruction. On CT abd/pelvis, a marked jejunal dilation in a pattern of a partial small bowel obstruction at the level of the distal jejunum or proximal ileum was noted so patient was admitted for further work up. He was placed on NPO and PO Flagyl and Cipro due to possible infectious causes. Overnight patient had no acute overnight events. Patient states that he felt better after being kept NPO overnight. Discussed with Dr. Delgado, radiologist, about small bowel follow through and reported no small bowel obstruction. Discussed with Dr. Ayala about results of small bowel follow through and he agreed with plan for discharge and advancing diet to semi-solid foods for the next 3 days. DISCHARGE MEDICATIONS: Please see below. ALLERGIES: Please see below. PHYSICAL EXAMINATION ON DISCHARGE: VITAL SIGNS: Please see below. GENERAL: Cooperative on exam. No acute distress. HEENT: Right conjunctival erythema, patient has R eye blindness and therefore was not able to track finger like he did with the left. No nasal congestion. Oral mucosa moist. CARDIOVASCULAR EXAMINATION: Regular rate and rhythm. No murmurs, rubs, or gallops. RESPIRATORY EXAMINATION: Clear to auscultation bilaterally. No wheezes, rales, or rhonchi. ABDOMINAL EXAMINATION: Soft, mildly tender to palpation to epigastric region. Bowel sounds present in all four quadrants. EXTREMITIES: Upper and lower extremity strength 5/5 with good ROM. Pt able to sit up on his own. NEUROLOGICAL EXAMINATION: CN III-XII grossly intact. Finger to nose negative. LABORATORY DATA: Please see below. IMAGING: CXR 09/02/2020: No acute airspace or pleural disease. CT chest with contrast 09/02/2020: Pulmonary arteries: No pulmonary embolus in the opacified pulmonary arteries. Aorta: Ectasia of the thoracic aorta. Lungs: Interstitial prominence and mild lingular airspace disease. Pleural spaces: Trace right pleural effusion. Heart: Mild left ventricular hypertrophy and subtle coronary artery calcification. Lymph nodes: Subcentimeter lymph nodes. Bones/joints: Degenerative change. Old rib fractures. Impression: 1. No pulmonary embolus in the opacified pulmonary arteries. 2. Additional findings as described above CT abdomen and pelvis with contrast 09/02/2020: 1. Gastric wall thickening. 2. Marked jejunal dilatation, in a pattern of partial small bowel obstruction at the level of the distal jejunum or proximal ileum. 3. Small quantity of free fluid. 4. Additional findings as described above. Gallbladder ultrasound 09/02/2020: Liver is hyperechoic and upper limits of normal in size measuring 17 cm in craniocaudal length. No focal hepatic lesion identified. Pancreas is incompletely evaluated due to interposed bowel gas but visualized portions appear normal. The gallbladder is normal and without gallstones, wall thickening, or pericholecystic fluid. No biliary ductal dilatation is appreciated and the common bile duct measures 4.0 mm diameter. Right kidney is normal in reniform shape without hydronephrosis and measures 10.6 x 5.7 x 5.8 cm. No ascites in the visualized right upper quadrant. IMPRESSION: Mild fatty infiltration to the liver. Otherwise unremarkable right upper quadrant ultrasound. Abdominal X-ray 09/02/20: IMPRESSION: Persistent moderate small bowel dilation in the left abdomen compatible with some degree of small bowel obstruction or ileus. Abdominal X-Ray 09/03/20: IMPRESSION Normal abdominal radiograph. No evidence for bowel obstruction on current examination. Small bowel follow through 09/03/20: Preliminary reading exhibits normal follow through results after discussion with Dr. Delgado. PROGNOSIS: Fair ACTIVITY: As tolerated. DIET: Advance diet to soft foods for the next three days. DISCHARGE PLAN: Discharge home. DISCHARGE INSTRUCTIONS: 1. Continue oral antibiotics for the next 4 days. 2. Slowly advance diet by eating semi-solid foods for the next 3 days. 3. Take Zofran every 8 hours as needed for nausea in the next 3 days. 4. If symptoms worsen or develop a fever, present back to the ER. ITEMS TO FOLLOWUP ON ON OUTPATIENT: 1. Follow up with PCP in 1 week. DISCHARGE CONDITION: Stable. TIME SPENT ON DISCHARGE: Greater than 35 minutes. Vital Signs/I&Os Vital Signs Date Time Temp Pulse Resp B/P (MAP) Pulse Ox O2 Delivery O2 Flow Rate FiO2 09/03/20 14:00 98.4 65 20 121/72 (88) 98 Room Air I&O- Last 24 Hours up to 6 AM 09/03/20 05:59 Intake Total 675 ml Output Total 605 ml Balance 70 ml Laboratory Data Labs 24H Laboratory Tests 2 09/02/20 21:26: Immature Granulocyte % (Auto) 0.3, Neutrophils (%) (Auto) 72.9H, Lymphocytes (%) (Auto) 18.0L, Monocytes (%) (Auto) 6.6, Eosinophils (%) (Auto) 1.8, Basophils (%) (Auto) 0.4, Neutrophils # (Auto) 6.9, Lymphocytes # (Auto) 1.7, Monocytes # (Auto) 0.6, Eosinophils # (Auto) 0.2, Basophils # (Auto) 0.0, Nucleated Red Blood Cells % (auto) 0.0, Anion Gap 4L, Glomerular Filtration Rate > 60.0, Calcium Level 9.0 09/03/20 05:35: Immature Granulocyte % (Auto) 0.3, Neutrophils (%) (Auto) 72.0H, Lymphocytes (%) (Auto) 18.6L, Monocytes (%) (Auto) 6.7, Eosinophils (%) (Auto) 1.9, Basophils (%) (Auto) 0.5, Neutrophils # (Auto) 5.7, Lymphocytes # (Auto) 1.5, Monocytes # (Auto) 0.5, Eosinophils # (Auto) 0.2, Basophils # (Auto) 0.0, Nucleated Red Blood Cells % (auto) 0.0, Anion Gap 8, Glomerular Filtration Rate > 60.0, Calcium Level 9.0 CBC/BMP Laboratory Tests 09/02/20 21:26 09/03/20 05:35 Discharge Medications Scheduled Ciprofloxacin HCl (Cipro) 500 Mg Tablet, 400 MG PO BID@ Losartan Potassium (Losartan Potassium) 100 Mg Tablet, 100 MG PO DAILY, (Reported) Metronidazole (Flagyl) 500 Mg Tablet, 500 MG PO Q8H Scheduled PRN Ondansetron HCl/Pf (Ondansetron HCl 4 mg/2 ml Vial) 4 Mg/2 Ml Vial, 4 MG IV Q8HP PRN for NAUSEA OR VOMITING Allergies Coded Allergies: No Known Allergies (Unverified , 06/27/18) GME ATTESTATION GME ATTESTATION My faculty preceptor for this patient encounter was physically present during the encounter and was fully available. All aspects of the patient interview, examination, medical decision making process, and medical care plan development were reviewed and approved by the faculty preceptor. The faculty preceptor is aware and concurs with the plan as stated in the body of this note and will attest to such by his/her cosignature. Jane ROBERSON S-3 Sep 03, 2020 15:43 Tushar Linn DO Sep 03, 2020 15:58
[2020-09-03] MEDS ORDERED: ONDANSETRON 4 MG TAB PO PRN (16:30)
--- NOTE | 2020-09-03 17:06 | REP ---
INDICATION: evaluate resolution of SBO. COMPARISON: None TECHNIQUE: This procedure was performed by Lindsey Pichardo [facility], under the direct supervision of Dr. Delgado. Images were reviewed with Dr. Delgado prior to dictation. Liquid barium was administered and the barium column was followed through the small bowel to the level of the terminal ileum. FINDINGS: The site controller film shows no organomegaly or pathological masses. The intestinal gas pattern is unremarkable. Small bowel transit time is approximately 90 minutes. During fluoroscopy gentle palpation shows all loops are freely movable and pliable. There is no fixed angulated loops. The small bowel mucosal pattern is normal in course and caliber. The appendix is visualized. There is no transition to suggest a partial small bowel obstruction. Spot filming of the terminal ileum shows it to be unremarkable. IMPRESSION: Unremarkable small bowel follow-through. 0.8 minutes of fluoroscopy time was utilized for this procedure. Some fluoroscopic images are performed with last image hold technology. These images require no additional radiation. <Electronically signed by Lindsey Pichardo > 09/03/20 1646 <Electronically signed by Eric Delgado > 09/03/20 1705
--- NOTE | 2020-09-04 11:36 | IPN ---
PROGRESS NOTE DATE: 09/03/2020 SUBJECTIVE: The patient was admitted by the Hospitalist yesterday for management of abdominal pain and a possible small bowel obstruction. I had seen him in consultation in the Emergency Department and have been following. Last evening, a recheck of the patient showed that he continued with significant abdominal pain with some distention and nausea. Repeat abdominal x-rays last evening showed actually increased distention and air filling of the proximal small bowel with a paucity of air in the distal bowel. I repeated labs last evening which were actually improved from the time of his admission with a normal white count and improved differential. He is seen again on the morning of the and reports that he is feeling somewhat better. He did have a small bowel movement but reports no passage of flatus. He has had a little nausea but no vomiting and overall his discomfort is improved. VITAL SIGNS: He has been afebrile since admission. His pulse is in the 70s and 80s. Blood pressure is good. Room air oxygen saturation has been normal. INTAKE AND OUTPUT: Intake and output shows excellent urine output. PHYSICAL EXAMINATION: GENERAL APPEARANCE: The patient is lying quietly on the hospital bed. He is alert and oriented. HEART: Regular rhythm. He is not tachycardic. LUNGS: Clear. ABDOMEN: Flat. He does have active bowel sounds. Palpation reveals that his abdomen feels somewhat softer than yesterday evening. There is some minimal tenderness to palpation in the epigastrium and left upper quadrant. LABORATORY DATA: His white count this morning is 8 with a hemoglobin of 14 and hematocrit of 43 and a platelet count of 248,000. Differential shows 72% neutrophils, 19% lymphocytes. Chemistry profile is without concerning abnormalities. He did have a repeat KUB this morning that now shows only a single mildly distended air filled loop of small bowel in the left upper quadrant. There is air scattered throughout his colon with a large air bubble in the rectum. There is no evidence of free air. IMPRESSION: The patient has clearly improved both symptomatically and radiographically. His exam reveals some very mild tenderness in the epigastrium and left upper quadrant. He reports he has not passed any gas yet, but there is gas now throughout his colon. The etiology of his apparent obstruction is unclear but this appears to be resolving. PLAN: In order to confirm that his obstruction is completely resolved, I have recommended that we obtain a small bowel follow through study today. If this shows complete resolution of his obstruction, then his diet can be advanced and he can be discharged home. The patient is agreeable with this plan and I will put in the order for the study. [facility]
== END 2020-09-03 17:51 | disposition home or self-care (01) ==
LOC: M ED 06:12 → EEVIPCON 06:13 → M ED INP 06:13 → ENRESERV 12:40 → M MSPAV 14:27
PROVIDERS: ADMIT Internal Medicine; ATTEND Internal Medicine
DX: R10.12 Left upper quadrant pain (principal); R10.13 Epigastric pain; I10 Essential (primary) hypertension; Z79.899 Other long term (current) drug therapy; Z86.16 Personal history of COVID-19
CPT/HCPCS: 36415; 71045; 71275; 74018; 74021; 74177; 74250; 76705; 80047; 80048; 80076; 82550; 82553; 83605; 83690; 84484; 85025; 85610; 87631; 93005; 93041; 94760; 96360; 96361; 99285; Q9967

== ENCOUNTER → 2023-08-30 | Outpatient (CLI) | payer OTHER ==
[~2023-08-30] MED LIST changes: +CIPR-249 PO; +FLAG500T PO; +LOSA100T46 PO; -LOSA100T50 PO; +ONDA4INJ4 IV
== END ==
LOC: M RAD 14:04
PROVIDERS: ATTEND Internal Medicine Pulmonary Disease
DX: R91.8 Other nonspecific abnormal finding of lung field (principal)

== ENCOUNTER → 2024-04-01 | Outpatient (CLI) | payer OTHER ==
[~2024-04-01] MED LIST changes: +ONDA-282 PO; -ONDA4TAB6 PO
== END ==
LOC: M RAD 14:38
PROVIDERS: ATTEND Internal Medicine Pulmonary Disease
DX: R91.8 Other nonspecific abnormal finding of lung field (principal)

== ENCOUNTER → 2025-05-14 | Outpatient (CLI) | payer OTHER | LOC: M RAD 16:47 | PROVIDERS: ATTEND Internal Medicine Pulmonary Disease | DX: R91.8 Other nonspecific abnormal finding of lung field (principal) ==